=== PATIENT | male | born 2005 | race Caucasian/White ===

== ENCOUNTER 2023-12-22 10:00 | Emergency (ER) | payer OTHER ==
--- NOTE | 2023-12-22 10:20 | ED Physician Documentation ---
History of Present Illness - Stated complaint Stated Complaint: RT ELBOW LAC - Chief complaint Chief Complaint: Trauma Ext - History obtained from History obtained from: Patient, Family - Additonal information Additional information: 18-year-old who has a progressive muscle issue, no clear diagnosis yet. Has had extensive testing and will be seeing a neurologist this week for EMG and muscle biopsy. Because of that he has frequent falls, especially on stairs because he cannot use the walker on stairs. Fell today on the last of 4 stairs coming out of the physical therapist. His toes bent backwards and he has foot pain and also has a laceration on the right elbow. Last tetanus is unknown. PD PAST MEDICAL HISTORY - Past Medical History Past Medical History: Yes Musculoskeletal: Other Other Past Medical History: muscle atrophy - Past Surgical History Past Surgical History: No - Allergies Allergies/Adverse Reactions: Allergies Allergy/AdvReac Type Severity Reaction Status Date / Time No Known Drug Allergies Allergy Verified 12/22/23 10:13 - Social History Does the pt smoke?: No Smoking Status: Never smoker Does the pt drink ETOH?: No Does the pt have substance abuse?: No - Immunizations Immunizations are current?: No Immunizations: TDAP >10years/unknown PD ED PE NORMAL - Vitals Vital signs reviewed: Yes - General General: Alert and oriented X 3, No acute distress - Neck Neck: Supple, no meningeal sign, No bony TTP - Extremities Extremities: Other (A little less than 2 cm laceration of the medial epicondyle of the right elbow without underlying tenderness, neurovascular compromise, or limited range of motion. He is tender over the fourth metatarsal of the right foot without deformity.) - Neuro Neuro: Alert and oriented X 3, Normal speech Eye Opening: Spontaneous Motor: Obeys Commands Verbal: Oriented GCS Score: 15 Results - Vitals Vitals: Vital Signs - 24 hr 12/22/23 12/22/23 10:08 11:51 Temperature 36.4 C L Heart Rate 67 65 Respiratory 20 17 Rate Blood Pressure 137/93 H 132/84 H O2 Saturation 100 100 Oxygen O2 Source Room air - Rads (name of study) Right foot x-ray Relevant Findings:: Final report received (No bony injury), EMP independent interpretation of test (I do wonder if he has a tiny nondisplaced fracture of the distal fourth metatarsal mostly seen on the oblique view.) Procedures - Laceration (location) R elbow Length in cm: 2 Wound type: Linear, Into subcut fat Neurovascular status: Sensory intact, Motor intact Anesthesia: Lidocaine 1% with epi Wound preparation: Irrigated copiously NS Skin layer closure: Nylon, Interrupted, Size #-0 - enter number (4-0), Sutures - enter # (3) Other: Patient tolerated well, No complications, Neurovascular intact, Tetanus booster given PD Medical Decision Making - ED course ED course: He has a progressive muscular issue and is following up with neurology. That caused a fall today and he has a laceration to the right elbow which was closed with sutures and tetanus was updated. He also had a foot injury. The radiologist read the x-ray is normal. But the area of maximal pain on the oblique view I do wonder if he has a nondisplaced fracture and as such was placed in a fracture shoe. Departure - Departure Disposition: 01 Home, Self Care Clinical Impression: Laceration of right elbow Qualifiers: Encounter type: initial encounter Qualified Code(s): S51.011A - Laceration without foreign body of right elbow, initial encounter Metatarsal fracture Qualifiers: Encounter type: initial encounter Metatarsal bone: fourth Fracture type: closed Fracture alignment: nondisplaced Laterality: right Qualified Code(s): S92.344A - Nondisplaced fracture of fourth metatarsal bone, right foot, initial encounter for closed fracture Condition: Good Record reviewed to determine appropriate education?: Yes Instructions: ED Fx Foot, ED Laceration Ext Sutr Stap Tape Follow-Up: Orthopedic Care [Provider Group] Comments: As discussed, at the time of discharge the radiologist does not let looked at the x-ray but I do think there is a very subtle fracture of the distal fourth metatarsal bone. It is fairly minor, so I think it will heal fine but reasonable to follow-up with an orthopedist in about a week for recheck. In the meantime, you can wear the fracture shoe. It is okay to walk and bear weight. Tylenol and/or ibuprofen as needed for pain. For suture care: Come back for any signs of infection which would include: Redness, swelling, drainage, increased pain, or fevers. You can wash it soap and water. Keep it covered and moist with bacitracin ointment which is available over the counter; avoid neosporin. Follow-up with your physician in about 14 days for suture removal. Forms: PCP List Discharge Date/Time: 12/22/23 11:51
[2023-12-22 10:22] VITALS: O2SAT 100
[2023-12-22] MEDS: TETANUS/DIPHTHERIA/PERTUSSIS 0.5 ML SYRINGE IM ONE (10:32)
[2023-12-22 11:52] VITALS: BP 132/84
--- NOTE | 2023-12-22 11:59 | XRAY Report ---
PROCEDURE: Foot 3+V RT INDICATIONS: foot inj TECHNIQUE: 3 views of the foot were acquired. COMPARISON: None. FINDINGS: Bones: No fractures or dislocations. No suspicious bony lesions. No significant degenerative mcclellan e. Soft tissues: No tibiotalar joint effusion. Achilles tendon appears normal. IMPRESSION: No acute bony abnormality. Reviewed by: Cam Garcia MD on 12/22/2023 11:58 AM PDT Approved by: Cam Garcia MD on 12/22/2023 11:58 AM PDT Station ID: [id number]
== END 2023-12-22 11:51 | disposition home or self-care (01) ==
LOC: ED 10:00
DX: S51.011A Laceration without foreign body of right elbow, initial encounter (principal); S92.344A Nondisplaced fracture of fourth metatarsal bone, right foot, initial encounter for closed fracture; W10.9XXA Fall (on) (from) unspecified stairs and steps, initial encounter; Y93.89 Activity, other specified; Y92.531 Health care provider office as the place of occurrence of the external cause
CPT/HCPCS: 12001; 90471; 99283